=== PATIENT | male | born 1980 | race Caucasian/White ===

== ENCOUNTER 2018-06-01 09:24 | Emergency (ER) | payer OTHER ==
[~2018-06-01] VITALS: Ht 170.2 cm; Wt 99.3 kg
[~2018-06-01 09:24] MED LIST: FLONASE16 GM NS; GILTUSS TR TAB1 EACH PO; ZYRTEC10 MG PO
[2018-06-01] MEDS ORDERED: AMOX1TAB5 PO (11:34)
== END 2018-06-01 11:39 | disposition home or self-care (01) ==
LOC: ER 09:24
DX: S81.811A Laceration without foreign body, right lower leg, initial encounter (principal); W45.8XXA Other foreign body or object entering through skin, initial encounter; Y93.89 Activity, other specified; Y92.89 Other specified places as the place of occurrence of the external cause; Y99.8 Other external cause status

== ENCOUNTER → 2019-04-10 13:48 | Outpatient (CLI) | payer OTHER ==
[~2019-04-10 13:48] MED LIST changes: +AMOX1TAB5 PO
== END | disposition home or self-care (01) ==
LOC: LAB 13:48
DX: J11.1 Influenza due to unidentified influenza virus with other respiratory manifestations (principal); A49.3 Mycoplasma infection, unspecified site; R50.9 Fever, unspecified

== ENCOUNTER 2020-06-27 20:29 | Emergency (ER) | payer OTHER ==
[~2020-06-27] VITALS: Ht 172.7 cm; Wt 99.8 kg
== END 2020-06-27 22:38 | disposition home or self-care (01) ==
LOC: ER 20:29
DX: S33.5XXA Sprain of ligaments of lumbar spine, initial encounter (principal); X50.3XXA Overexertion from repetitive movements, initial encounter; Y93.89 Activity, other specified; Y92.69 Other specified industrial and construction area as the place of occurrence of the external cause; Y99.8 Other external cause status